=== PATIENT | male | born 1960 | race Caucasian/White ===

== ENCOUNTER 2016-12-31 15:16 | Inpatient (IN) | payer OTHER ==
[~2016-12-31] VITALS: Ht 175.3 cm; Wt 74.8 kg
[~2016-12-31 15:16] MED LIST: ASPI-1063 PO; ATEN-41; BUPR75TA20 PO; CEL250 PO; DULO60CA64 PO; FERR325T91 PO; FURO-149 PO; GABA-331 PO; GLIP10TA11 PO; MAGN250T31 PO; METF-303; METF1000 PO; MULT-1117 PO; NOR10 PO; NORT25CA PO; OMEG1CAP8 PO; PHEN16.227 PO; PRAV20TA PO; PSYL0.526 PO; RABE20TA5 PO; RIFA550T5 PO; SER25 PO; SPIR50TA26 PO; TACR1CAP7 PO; THIA100T70 PO; TRAM50TA2 PO; ZOLP5TAB7 PO
[2016-12-31 22:00] VITALS: BP 132/68; PULSE 74; RESP 18; TEMP 97.8; O2SAT 96
[2016-12-31] MEDS ORDERED: PRO40 PO (22:51)
[2016-12-31 22:52] VITALS: BP 132/71; PULSE 82; RESP 20; TEMP 97.9; O2SAT 96
[2016-12-31] MEDS ORDERED: CEL250 PO (22:52)
[2016-12-31] MEDS ORDERED: MIRT15TA7 PO (22:53)
[2016-12-31] MEDS ORDERED: [UNRECOGNIZED DRUG - OTHER] PO (22:55)
[2016-12-31] MEDS ORDERED: [UNRECOGNIZED DRUG - OTHER] PO (23:22)
[2016-12-31] MEDS ORDERED: PRED5TAB PO (23:22)
[2016-12-31] MEDS ORDERED: OXYC5TAB84 PO (23:22)
[2016-12-31] MEDS ORDERED: TACR1CAP PO (23:22)
[2016-12-31] MEDS ORDERED: TAMS0.4C96 PO (23:22)
[2016-12-31] MEDS ORDERED: FINA5TAB3 PO (23:22)
[2016-12-31] MEDS ORDERED: ERGOCALCIFEROL PO (23:22)
[2016-12-31] MEDS ORDERED: FLUDROCORTISONE PO (23:22)
[2016-12-31] MEDS ORDERED: INSU100V9 SUBCUT (23:22)
[2016-12-31] MEDS ORDERED: INSU100V26 SUBCUT (23:22)
[2017-01-01] MEDS ORDERED: VANCOMYCIN HCL 1 GM/NS PREMIX 250 ML IV ONE (00:45)
[2017-01-01] MEDS ORDERED: INSULIN ASPART 100 UNITS/ML, 10 ML VIAL (NovoLOG) SUBCUT PRN (00:45)
[2017-01-01] MEDS ORDERED: PIPERACILLIN/TAZOBACTAM 3.375 GM/VIAL (ZOSYN) IV ONE (01:03)
[2017-01-01] MEDS ORDERED: VANCOMYCIN HCL 1000 MG/VIAL IV ONE (01:04)
[2017-01-01] MEDS ORDERED: PIPERACILLIN/TAZO 3.375/DEX-IS 50 ML IV SCH (06:00)
[2017-01-01 06:59] LABS: BASOPHILS % (AUTO) 0.4 % (0.0-2.0); EOSINOPHILS # (AUTO) 0.1 K/uL (0.0-0.4); EOSINOPHILS % (AUTO) 1.2 % (0.0-4.0); HEMOGLOBIN 11.7 g/dL (14.0-18.0); LYMPHOCYTES # (AUTO) 1.4 K/uL (1.0-5.5); LYMPHOCYTES % (AUTO) 27.9 % (20.5-51.5); MEAN CORPUSCULAR HEMOGLOBIN 28 pg (27-31); MEAN CORPUSCULAR HGB CONC 33 % (32-36); MEAN CORPUSCULAR VOLUME 87 fL (79.0-98.0); MONOCYTES # (AUTO) 0.5 K/uL (0.0-1.0); MONOCYTES % (AUTO) 9.3 % (1.7-9.3); NEUTROPHILS # (AUTO) 2.9 K/uL (1.8-7.7); NEUTROPHILS % (AUTO) 61.2 % (40.0-70.0); PLATELET COUNT (AUTO) 245 K/uL (130-430); RED BLOOD CELL COUNT(AUTO) 4.14 MIL/uL (4.2-6.2); WHITE BLOOD COUNT (AUTO) 4.9 K/uL (4.8-10.8)
[2017-01-01] MEDS ORDERED: DEXTROSE 50%-WATER 50 ML DISP.SYRIN IVP PRN ×2 (07:15)
[2017-01-01] MEDS ORDERED: GLUCOSE 15 GM GEL (in 37.5 GM TUBE) PO PRN ×2 (07:15)
[2017-01-01 07:25] LABS: ALBUMIN 2.9 g/dL (3.4-4.8); CREATININE 1.26 mg/dL (0.55-1.30); POTASSIUM 4.4 mmol/L (3.5-5.1); TOTAL BILIRUBIN 0.3 mg/dL (0.0-1.0); TOTAL PROTEIN, SERUM 7.1 g/dL (6.4-8.3)
[2017-01-01] MEDS ORDERED: TACROLIMUS ANHYDROUS 1 MG CAPSULE (PROGRAF) PO SCH (08:15)
[2017-01-01] MEDS ORDERED: MYCOPHENOLATE MOFETIL 250 MG CAPSULE PO SCH ×2 (08:15→09:00)
[2017-01-01] MEDS ORDERED: traMADol HCL HCL 50 MG TABLET (ULTRAM) PO PRN (08:15)
[2017-01-01] MEDS ORDERED: oxyCODONE HCL 5 MG TABLET PO PRN (08:15)
[2017-01-01 08:16] VITALS: BP 128/78; PULSE 81; RESP 16; TEMP 98.3; O2SAT 99
[2017-01-01] MEDS: TACROLIMUS ANHYDROUS 1 MG CAPSULE (PROGRAF) PO SCH ×2 (08:53→09:00)
[2017-01-01] MEDS: PREDNISONE 5 MG TABLET PO SCH ×2 (08:54→09:00)
[2017-01-01] MEDS: ASPIRIN 81 MG TABLET(ECOTRIN) PO SCH ×2 (08:54→09:00)
[2017-01-01] MEDS: PANTOPRAZOLE SODIUM 40 MG TAB PO SCH ×2 (08:54→09:00)
[2017-01-01] MEDS: MULTIVITAMINS TAB 1 TABLET PO SCH ×2 (08:55→09:00)
[2017-01-01] MEDS: FINASTERIDE 5 MG TABLET (PROSCAR) PO SCH ×2 (08:57→09:00)
[2017-01-01] MEDS: PRAVASTATIN SODIUM 20 MG TABLET (PRAVACHOL) PO SCH ×2 (08:57→09:00)
[2017-01-01] MEDS ORDERED: amLODIPine BESYLATE 10 MG TABLET PO SCH (09:00)
[2017-01-01] MEDS: INSULIN ASPART 100 UNITS/ML, 10 ML VIAL SUBCUT SCH ×2 (09:00→09:25)
[2017-01-01] MEDS: buPROPion HCL 75 MG TABLET PO SCH ×2 (09:00→09:01)
[2017-01-01 12:01] VITALS: BP 130/82; PULSE 85; RESP 16; TEMP 97.7; O2SAT 98
[2017-01-01] MEDS ORDERED: MEROPENEM 1 GM in NS 100 ML IV SCH (14:00)
[2017-01-01] MEDS ORDERED: ZOLPIDEM TARTRATE 5 MG TABLET PO SCH (21:00)
[2017-01-01] MEDS ORDERED: LINEZOLID 300 ML IV SCH (21:00)
[2017-01-01] MEDS ORDERED: NORTRIPTYLINE HCL 25 MG CAPSULE PO SCH (21:00)
[2017-01-01] MEDS ORDERED: QUEtiapine FUMARATE 25 MG TABLET PO SCH (21:00)
[2017-01-01] MEDS ORDERED: MIRTAZAPINE 15 MG TABLET PO SCH (21:00)
[2017-01-01] MEDS ORDERED: TAMSULOSIN HCL 0.4 MG CAP PO SCH (21:00)
== END 2017-01-01 13:55 | disposition left against medical advice (07) | DRG 638 ==
LOC: SMU 21:25
PROVIDERS: ADMIT Internal Medicine Hospice and Palliative Medicine; ATTEND Internal Medicine Hospice and Palliative Medicine
DX: E11.69 Type 2 diabetes mellitus with other specified complication (principal); M86.9 Osteomyelitis, unspecified; Z94.4 Liver transplant status; E11.22 Type 2 diabetes mellitus with diabetic chronic kidney disease; M46.46 Discitis, unspecified, lumbar region; Z53.21 Procedure and treatment not carried out due to patient leaving prior to being seen by health care provider; N40.0 Benign prostatic hyperplasia without lower urinary tract symptoms; N18.6 End stage renal disease; I51.7 Cardiomegaly; Z79.4 Long term (current) use of insulin; Z88.8 Allergy status to other drugs, medicaments and biological substances; Z87.01 Personal history of pneumonia (recurrent)
CPT/HCPCS: 36415; 80053; 82962; 84484; 85025; J1815; J2020; J2185; J2543; J3370; J7050; J7507; J7512; J7517

== ENCOUNTER 2017-02-19 13:43 | Emergency (ER) | payer OTHER ==
[~2017-02-19] VITALS: Ht 175.3 cm; Wt 70.8 kg
[~2017-02-19 13:43] MED LIST changes: -ATEN-41; +ERGOCALCIFEROL PO; -FERR325T91 PO; +FINA5TAB3 PO; +FLUDROCORTISONE PO; -FURO-149 PO; -GLIP10TA11 PO; +INSU100V26 SUBCUT; +INSU100V9 SUBCUT; -METF-303; -METF1000 PO; +MIRT15TA7 PO; +OXYC5TAB84 PO; -PHEN16.227 PO; +PRED5TAB PO; +PRO40 PO; -RABE20TA5 PO; -RIFA550T5 PO; -SPIR50TA26 PO; +TACR1CAP PO; +TAMS0.4C96 PO; +[UNRECOGNIZED DRUG - OTHER] PO; +[UNRECOGNIZED DRUG - OTHER] PO
[2017-02-19 14:03] VITALS: BP_SYST 120
[2017-02-19 14:24] LABS: BASOPHILS # (AUTO) 0.1 K/uL (0.0-0.2); BASOPHILS % (AUTO) 1.5 % (0.0-2.0); EOSINOPHILS % (AUTO) 0.4 % (0.0-4.0); HEMATOCRIT 39.6 % (36-54); HEMOGLOBIN 12.7 g/dL (14.0-18.0); LYMPHOCYTES % (AUTO) 14.6 % (20.5-51.5); MEAN CORPUSCULAR HEMOGLOBIN 27 pg (27-31); MEAN CORPUSCULAR HGB CONC 32 % (32-36); MEAN CORPUSCULAR VOLUME 83 fL (79.0-98.0); MONOCYTES # (AUTO) 0.3 K/uL (0.0-1.0); MONOCYTES % (AUTO) 4.3 % (1.7-9.3); NEUTROPHILS # (AUTO) 5.7 K/uL (1.8-7.7); NEUTROPHILS % (AUTO) 79.2 % (40.0-70.0); PLATELET COUNT (AUTO) 241 K/uL (130-430); RED BLOOD CELL COUNT(AUTO) 4.76 MIL/uL (4.2-6.2); RED CELL DISTRIBUTION WIDTH 14.3 % (9.0-15.0); WHITE BLOOD COUNT (AUTO) 7.1 K/uL (4.8-10.8)
[2017-02-19 14:39] LABS: CALCIUM 9.7 mg/dL (8.4-11.0); CREATININE 1.46 mg/dL (0.55-1.30); POTASSIUM 5.4 mmol/L (3.5-5.1)
[2017-02-19 14:43] LABS: ALBUMIN 3.8 g/dL (3.4-4.8); TOTAL BILIRUBIN 0.3 mg/dL (0.0-1.0); TOTAL PROTEIN, SERUM 8.2 g/dL (6.4-8.3)
[2017-02-19] MEDS ORDERED: NACL 0.9% 1,000 ML IV ONE (15:00)
[2017-02-19] MEDS ORDERED: DEXAMETHASONE SOD PHOSPHATE 10 MG/ML VIAL IVP ONE (15:00)
[2017-02-19 17:18] LABS: BILIRUBIN,URINE NEGATIVE (NEGATIVE); BLOOD, URINE NEGATIVE (NEGATIVE); CLARITY/URINE CLEAR (CLEAR); COLOR,URINE YELLOW (YELLOW); GLUCOSE,URINE NEGATIVE (NEGATIVE); KETONES,URINE NEGATIVE (NEGATIVE); LEUKOCYTE ESTERASE ,URINE TRACE (NEGATIVE); NITRITE, URINE NEGATIVE (NEGATIVE); PROTEIN URINE NEGATIVE (NEGATIVE); UROBILINOGEN,URINE 0.2 (0.2-1.0)
[2017-02-19 17:24] LABS: BACTERIA,URINE FEW /HPF (None Seen); MUCUS,URINE None Seen /LPF (None Seen); RBC,URINE 0-3 /HPF (0-3); WBC,URINE 0-3 /HPF (0-3)
[2017-02-19 17:29] LABS: BARBITURATE, URINE NEGATIVE (NEG <=200); BENZODIAZEPINE, URINE NEGATIVE (NEG <=150); CANNABINOID, URINE NEGATIVE (NEG <=50); COCAINE, URINE NEGATIVE (NEG <=150); METHAMPHETAMINES SCREEN,URINE NEGATIVE (NEG <=500); OPIATE, URINE NEGATIVE (NEG <=100); PHENCYCLIDINE SCREEN,URINE NEGATIVE (NEG <=25); UR TRICYCLIC ANTIDEPRESSANTS NEGATIVE (NEG <=300); URINE AMPHETAMINE NEGATIVE (NEG <=500); URINE METHADONE NEGATIVE (NEG <=200); URINE OXYCODONE SCREEN NEGATIVE (NEG <=100); URINE PROPOXYPHENE SCREEN NEGATIVE (NEG <=300)
[2017-02-19 17:33] VITALS: BP_SYST 136
== END 2017-02-19 17:33 | disposition home or self-care (01) ==
LOC: SED 13:43
DX: E86.0 Dehydration (principal); E11.9 Type 2 diabetes mellitus without complications; I10 Essential (primary) hypertension; Z94.4 Liver transplant status; Z94.0 Kidney transplant status; Z79.4 Long term (current) use of insulin; Z88.8 Allergy status to other drugs, medicaments and biological substances; Z79.899 Other long term (current) drug therapy
CPT/HCPCS: 36415; 80053; 80307; 81000; 85025; 93005; 96361; 96374; 99285; J1100; J7030